=== PATIENT | female | born 1995 | race Two or more races ===

== ENCOUNTER 2021-03-05 09:04 | Emergency (ER) | payer BC, OTHER ==
[~2021-03-05] VITALS: Ht 157.5 cm; Wt 68.0 kg
[2021-03-05 09:29] VITALS: BP 118/81
[2021-03-05] MEDS ORDERED: methylPREDNISolone SOD SUCC 125 MG/2 ML VL IM ONE (09:45)
[2021-03-05] MEDS ORDERED: diphenhdrAMINE HCL 50 MG/1 ML VL IM ONE (09:45)
== END 2021-03-05 11:01 | disposition left against medical advice (07) ==
LOC: ER 09:04
DX: M25.572 Pain in left ankle and joints of left foot (principal); R07.0 Pain in throat; Z53.29 Procedure and treatment not carried out because of patient's decision for other reasons
CPT/HCPCS: 96372; 99284; J1200; J2930